=== PATIENT | female | born 1960 | race Caucasian/White ===

== ENCOUNTER 2016-04-16 15:28 | Inpatient (IN) | payer OTHER ==
--- NOTE | ~2016-04-16 | DS ---
Unit #: [id number] #: [id number] Patient: LYDIA FOSTER [id number] [facility]. [place], [place] [address] [id number] I MR#: [id number] NAME: LYDIA FOSTER ROOM: [facility] Age: 55 Sex: F Admission Date: 04/16/2016 : 1960 Discharge Date: 04/25/2016 Attending Physician: Ammy Jama M.D. Primary Care Physician: Rivas Galvez M.D. DISCHARGE SUMMARY CONSULTATIONS Dr. Zarco with cardiology. CONDITION ON DISCHARGE Stable. FINAL DIAGNOSES 1. Acute hypoxia/acute hypoxic respiratory failure. Patient wearing oxygen; however, not sure that she will qualify for home oxygen. Will eventually need a 6-minute walk test prior to discharge from rehab. Is currently on room air with oxygen saturations of 98% at rest. 2. Acute exacerbation of chronic obstructive pulmonary disease. Bronchospasm has improved and currently on oral steroids and will continue to do a taper of these once she gets to rehab. The patient is not on any antibiotics at this time. 3. Nonischemic cardiomyopathy. Two-dimensional echocardiogram revealed an ejection fraction of 30% to 35%. Medications per cardiology. 4. Chest pain. The patient did have a heart catheterization that showed mostly normal coronaries. This was done on April 17. 5. Hyponatremia. Sodium this morning was 129. Yesterday it was 135 and was 131 on the . We will follow up with [facility] on Thursday. 6. Hypertension. Blood pressure medications per cardiology. PROCEDURES The patient underwent a heart cath on April [address] Novak that revealed angiographically normal coronary arteries with medical management. DIAGNOSTIC STUDIES CARDIOVASCULAR: A two-D echo done on April 17 revealed an EF of 30% to 35%. Medications and management per cardiology. IMAGING: Chest x-ray done this morning revealed no active or acute disease. However, she does have some mild scarring versus atelectasis in the left base. LABORATORY: Sodium was 129, potassium 4.4, BUN 18, creatinine 0.6, blood sugar 87. HOSPITAL COURSE The patient was admitted on April 16 with chest pain and other signs and symptoms that resembled the flu. There was no leukocytosis noted at that time. Procalcitonin was 0.33, and she had not had any fevers since admission. D-dimer was not elevated. Respiratory pathogen panel was collected and was negative for flu A and flu B. The patient underwent a Unit #: [id number] #: [id number] Patient: LYDIA FOSTER cath with cardiology on the 2nd with normal coronaries noted and medical management recommended. The patient was started on IV steroids, which have been tapered and are now p.o. Chest x-rays have not revealed any acute infiltrate since admission including the one on admission and the one from today, April 25, date of discharge. All blood pressure medications and diuretics have been adjusted per cardiology. Physical therapy and occupational therapy have been working with this patient, and she is now ready for discharge to rehab on April 25. She [facility] at the [facility] PHYSICAL EXAMINATION (on date of discharge) VITAL SIGNS: Temp of 97.7, heart rate of 102, respirations 18, blood pressure 134/76, oxygen saturation 98%. GENERAL: The patient is in no acute distress, sitting up in the bed. She was on the phone when I entered the room. NEUROLOGIC: She is awake, alert and oriented x3. PULMONARY: She does have some expiratory rhonchi that clears some with a cough, and she also some expiratory wheezes bilaterally. However, respirations are not labored, and she is currently on room air. CARDIOVASCULAR: Regular rate and rhythm. ABDOMEN: Soft, round, nontender with positive bowel sounds. EXTREMITIES: Without edema. SKIN: Without lesions or rashes. DISCHARGE MEDICATIONS 1. The patient will continue her albuterol Mini-Neb. 2. Her home Symbicort has been changed to Pulmicort nebs for the time being. This can be switched back to Symbicort upon her discharge. 3. She has been started on prednisone, which will be tapered with the tapering dose written out on the discharge instructions. The patient is currently receiving 30 mg p.o. b.i.d. Starting tomorrow would like to start prednisone 40 mg p.o. daily x3 days, then 30 mg p.o. daily x3 days, then 20 mg p.o. daily x3 days, then 10 mg p.o. daily x3 days to complete the taper. 4. The patient has also been started on Entresto by cardiology. 5. Magnesium oxide 400 mg tablets b.i.d. 6. Would like to continue her Lovenox for now; however, she will not need to go home on this. 7. The patient is to continue her home Remeron. 8. Continue her home Seroquel. 9. She has been started on Norvasc per cardiology. 10. Lasix per cardiology. 11. Will continue her home Synthroid. 12. Would like to continue 3% nebs for the time being; however, she does not need to continue these upon discharge from rehab. 13. I have discontinued her Percocet and will start on just Tylenol 650 p.o. q.4 p.r.n., not to exceed 4 grams of Tylenol daily. I have discussed this with her, and she is okay with this change. DISCHARGE INSTRUCTIONS The patient is to follow up with Dr. Zarco in 2 weeks, and we would like for her to follow up in our office in the next 2-4 weeks. The patient will be discharged to rehab at this time. Dictated by... Lenore Jansen APRN for Ammy Jama M.D. Unit #: [id number] #: [id number] Patient: LYDIA FOSTER AT/db TD: 04/25/2016 12:56 JOB #: [id number] DISCHARGE SUMMARY X Lenore Jansen X DISCHARGE SUMMARY
--- NOTE | ~2016-04-16 | CR63 ---
[facility] A Service of [facility] & [facility] RADIOLOGY TEXT RESULTS PATIENT: LYDIA FOSTER LOCATION: [facility] 311-01 : 58 UNIT #: [id number] AGE: [address]: Ángel Jama MD SEX: F ORDER DR: [id number] [facility] [address] [place], [place] [address] [id number] I MR#: [id number] Acc #: [id number] NAME: LYDIA FOSTER : 1960 SEX: F STUDY DATE/TIME: 04/21/2016 17:26 UNIT: [address] ROOM: [facility] STUDY DESCRIPTION: CR Chest 2 View Attending Physician: Ammy Jama M.D. Ordering Physician: Ammy Jama M.D. Primary Care Physician: Rivas Galvez M.D. MEDICAL IMAGING REPORT This report is preliminary unless electronic signature is present EXAM Chest 2 views 04/21/2016 HISTORY Follow up chest pain. COPD, flu, fever, body aches 4 days duration. Nodules on lungs. FINDINGS PA and lateral radiographs of chest are presented. Comparison 04/20/2016. The bony structures are unremarkable. The heart and mediastinum are normal in size and contour. The lungs are hyperinflated as on prior study consistent with underlying COPD. Linear scarring left lung base stable. There is no indication of acute pulmonary disease, pleural effusion or pneumothorax. No suspicious nodule seen on this examination. Dictated by... Dagoberto Garces M.D. THIS IS AN ELECTRONICALLY VERIFIED REPORT Dagoberto Garces M.D. at 04/22/2016 5:42 PM LEEROY/lowell TD: 04/22/2016 08:25 JOB #: [id number] MEDICAL IMAGING REPORT COPY
--- NOTE | ~2016-04-16 | EKG ---
PATIENT: LYDIA FOSTER UNIT #: [id number] Ventricular Rate: 88 BPM Atrial Rate: 88 BPM P-R Interval: 132 ms QRS Duration: 106 ms Q-T Interval: 440 ms QTC Calculation(Bezet): 532 ms P [place]: 76 degrees Calculated R [place]: 66 degrees Calculated T [place]: -50 degrees Diagnosis Line: Normal sinus rhythm Diagnosis Line: Incomplete left bundle branch block Diagnosis Line: Prolonged QT Diagnosis Line: Abnormal ECG Diagnosis Line: When compared with ECG of 17-APR-2016 06:01, Diagnosis Line: (unconfirmed) Diagnosis Line: T wave inversion no longer evident in Lateral Diagnosis Line: leads Diagnosis Line: Confirmed by CHRISTELLE MAX MD ([id number]) on 04/19/2016 Diagnosis Line: 5:51:21 PM INTERPRETING MD: WINTER MORENO
--- NOTE | ~2016-04-16 | A ---
[facility] Nutrition Therapy DATE: 04/17/16 Patient: LYDIA FOSTER Physician: MACHELLE Address: [address] Room/Bed: [address] [place] [address], Zip: [place] [address] Admit Date: 04/16/16 Date of : 58 Height: 5 2 Weight: 93 42.2 NUTRITIONAL ASSESSMENT: REASON: LOW BMI 55 YO FEMALE ADMITTED FOR CHEST PAIN, POSITIVE FOR FLU PMH: COPD, HTN, dyslipidemia, CAD Anthropometrics: Ht: 62" Wt: 42.2 kg BMI: 17 IBW: 50 kg, 84% IBW Labs: K+ 3.0 BUN 6 Creat 0.5 Ca++ 7.1 Mg++ 1.1 Meds: Zofran, MgSO4, KCl, pepcid, spironolactone, remeron, synthroid (PO) I/O & Bowel function: 1115/4, last BM 3 Skin Integrity: Dry skin all over Edema: none noted Estimated Nutrition Needs: Increased due to PMH, low body weight Diet: Regular Assessment: Chart reviewed, events noted. Pt admitted for chest pain, also positive for the flu. RD spoke with the pt at bedside, as this RD saw the pt during a previous admission June 2015. Pt confirmed that she has actually gained ~16# since last visit. Pt reports having a fair appetite at this time, and consumed 100% of lunch, and did not feel like drinking her Ensure supplement. RD encouraged the pt to consume supplements as tolerated, and smaller more frequent meals as needed. Pt does prefer smaller, more frequent meals. RD will order. Dx: Increased protein-energy needs RT PMH, COPD, Dx AEB BMI 17, 84% IBW. Intervention: 1. Regular diet 2. 6 small meals 3. Ensure TID Monitoring, Evaluation and Goals: 1. Oral intake; tolerate >50-75% meals 2. Labs; WNL 3. Weight; promote weight gain, prevent weight loss [facility] Nutrition Therapy DATE: 04/17/16 Patient: LYDIA FOSTER Physician: MACHELLE Address: [address] Room/Bed: [address] [place] [address], Zip: [place] [address] Admit Date: 04/16/16 Date of : 58 Height: 5 2 Weight: 93 42.2 Recommendations: 1. Add 6 small meals to current diet order to promote adequate nutrient intake and weight gain. 2. Ensure TID (chocolate) with meals. Pt is at mild-moderate nutritional risk. RD will follow hospital course per protocol. Respectfully, MAX BRUNER RD, LD [employer] [facility] cc: client file
--- NOTE | ~2016-04-16 | HP ---
Unit #: [id number] #: [id number] Patient: LYDIA FOSTER [id number] [facility]. [place], [place] [address] [id number] I MR#: [id number] NAME: LYDIA FOSTER ROOM: 311 Age: 55 Sex: F Admission Date: 04/16/2016 : 1960 Attending Physician: Ammy Jama M.D. Primary Care Physician: Rivas Galvez M.D. HISTORY AND PHYSICAL HISTORY OF PRESENT ILLNESS This is a 55-year-old female seen in our office in March 2016 for shortness of breath and was given antibiotics and a steroid. She completed both of these last week and was feeling better but then started feeling worse again on of last week. She complains of dyspnea on exertion with minimal activity, off and on fevers and chills for the last few days, chest pain, increased weakness and fatigue, a cough that is somewhat productive with "foul-tasting sputum," decreased appetite, and just generalized aches all over. She says that she called our office and spoke with someone who told her that she needed to go to her primary care physician and be swabbed for the flu, but it was too late to get in at that time. Thursday she began to feel even worse and eventually presented to the ER with the main complaint of chest pain. She denies that this chest pain is caused by coughing or exacerbated by coughing. However, on palpation she is grimacing and reporting worsening pain. She was evaluated by Cardiology and had a cath today which was clean, and she does report being exposed to her 6-year-old grandson who has been sick. The patient has a history of COPD. She is not on home oxygen but does use DuoNebs, Symbicort, and Spiriva, and she says that she quit smoking about a year ago. PAST MEDICAL HISTORY 1. Chronic obstructive pulmonary disease. 2. Gastroesophageal reflux disease. 3. Depression. 4. Hypothyroid. SOCIAL HISTORY Patient is a former smoker. She quit, it will be one year ago in June. ALLERGIES AMPICILLIN. HOME MEDICATIONS 1. Remeron 15 mg p.o. at bedtime. 2. Seroquel 25 mg p.o. at bedtime. 3. Zestril 10 mg p.o. daily. 4. Prilosec 40 mg p.o. daily. 5. Prozac 40 mg p.o. 3 times daily. 6. Synthroid 88 mcg p.o. daily before breakfast. 7. Spiriva 1 inhalation daily. 8. Symbicort 2 puffs inhaled daily. 9. Proventil p.r.n. Unit #: [id number] #: [id number] Patient: LYDIA FOSTER REVIEW OF SYSTEMS Negative except for what was mentioned in the History of Present Illness. PHYSICAL EXAMINATION VITAL SIGNS: Temperature of 97.6, heart rate 83, respirations 19, blood pressure 150/96, and oxygen saturation 95% on room air. GENERAL: Patient is in no acute distress sitting up in the bed status post cardiac catheterization. HEENT: No JVD and is without adenopathy. LUNGS: Respirations are not labored. However, she does have mild expiratory wheeze bilaterally. CARDIAC: Regular rate and rhythm. ABDOMEN: Soft, round, and nontender, with positive bowel sounds. EXTREMITIES: Without edema. SKIN: Without lesions or rashes. NEUROLOGIC: She is awake, alert, and oriented x3. DIAGNOSTIC STUDIES LABORATORY: White blood cell count was 7.4, hemoglobin 13.6, and platelets 265,000. Sodium 136, potassium was 3 this morning, BUN 6, creatinine 0.5, and magnesium 1.1. Troponin 0.04. INR 1.1 and PT 11.1. BNP 68. Procalcitonin 0.33. D-dimer was 335. IMAGING: Chest x-ray with no acute infiltrate. ASSESSMENT AND PLAN 1. Acute dyspnea. Chest x-ray with no acute disease. Procalcitonin was 0.33. No leukocytosis noted. No fevers since admission. However, she reported subjective fevers at home. Oxygenation is okay with saturations of 95% on room air. She did have an elevated D-dimer, but since she had a cardiac catheterization today, we will hold off on doing a PE protocol. However, I would like to check a respiratory viral panel, and due to the patient's signs and symptoms, I will go ahead and start Tamiflu which we can stop if the viral panel comes back negative. 2. Chest pain. The patient has been evaluated by Cardiology. She is status post catheterization today with no acute findings. She had been on heparin and Integrilin drips that have since been stopped. Ejection fraction was 50% to 55%. Chest pain was reproducible with palpation. 3. Chronic obstructive pulmonary disease with exacerbation and noted bronchospasm. Will give IV steroids x2 and continue her home nebulizers and inhalers. 4. Prophylaxis. Would like to start prophylactic Lovenox starting tomorrow morning. 5. Hypomagnesemia. Magnesium was replaced per Cardiology. 6. Hypokalemia which was replaced per Cardiology. 1. Dictated by Lenore Jansen APRN for Ammy Jama M.D. AT/am TD: 04/17/2016 15:13 JOB #: [id number] Unit #: [id number] #: [id number] Patient: LYDIA FOSTER HISTORY AND PHYSICAL X Lenore Jansen X HISTORY AND PHYSICAL
--- NOTE | ~2016-04-16 | CR72 ---
[facility] A Service of [facility] & [facility] RADIOLOGY TEXT RESULTS PATIENT: LYDIA FOSTER LOCATION: [facility] 311- : 58 UNIT #: [id number] AGE: [address]: Ángel Jama MD SEX: F ORDER DR: [id number] [facility] [address] [facility]. [place], [place] [address] [id number] I MR#: [id number] Acc #: [id number] NAME: LYDIA FOSTER : 1960 SEX: F STUDY DATE/TIME: 04/25/2016 05:03 UNIT: [address] ROOM: [facility] STUDY DESCRIPTION: CR Chest Single View Portable Attending Physician: Ammy Jama M.D. Ordering Physician: Ammy Jama M.D. Primary Care Physician: Rivas Galvez M.D. MEDICAL IMAGING REPORT This report is preliminary unless electronic signature is present EXAM Portable chest 04/25/2016 at 0503 INDICATION Chest pain, shortness of air. FINDINGS AP portable chest compared with 04/21/2016. Cardiac and mediastinal contours are normal. The lungs are emphysematous except for some mild scarring or atelectasis at the left base. No pneumothorax. IMPRESSION Emphysema with mild left base chronic scarring or atelectasis. Otherwise, no active disease. Dictated by... Ronnell Hutchison Jr., M.D. THIS IS AN ELECTRONICALLY VERIFIED REPORT Ronnell Hutchison Jr., M.D. at 04/25/2016 12:41 PM ZHOU/khai TD: 04/25/2016 10:18 JOB #: [id number] MEDICAL IMAGING REPORT COPY
--- NOTE | ~2016-04-16 | CO ---
Unit #: [id number] #: [id number] Patient: LYDIA STONER [id number] [facility] [address] [facility]. [place], [place] [address] [id number] I MR#: [id number] NAME: LYDIA STONER ROOM: 311 Age: 55 Sex: F Admission Date: 04/16/2016 : 1960 Attending Physician: Ammy Jama M.D. Primary Care Physician: Rivas Galvez M.D. CONSULTATION REPORT Consultation requested by Dr. Galvez. REASON FOR CONSULTATION REQUEST Chest pain. HISTORY OF PRESENT ILLNESS Mrs. Stoner is a pleasant 55-year-old female looking older than her stated age. She has a history of COPD, tobacco abuse with 35 years until 06/25/15, hypertension, dyslipidemia, severe, and a strong family history of coronary disease. She has not had a cardiac event. She started noticing chest pain today "all the time." It did not radiate, was associated with diaphoresis and shortness of breath, but was mainly present in the center of her chest. She had been ill with the flu for about five days, and had noted recent progressive dyspnea on exertion so that she could just barely walk across the room. She has had on and off chest pain during the week, but did no have any anginal type symptoms. The current pain is not aggravated by exertion or relieved by rest. Upon presentation to the emergency room at [facility], the ECG showed right atrial enlargement, and very low anterior forces, likely related to lead placement in relation to the heart, and relation to COPD and likely posterior and inferior displacement. There are no acute ST changes. There is substantial baseline artifact, however, which obscures the ST segments. Initial labs showed fasting glucose 105, creatinine 0.8, potassium 2.3. Point of care troponin less than 0.05. Platelet count was 265,000, hemoglobin 13.6, white blood count 7.4. REVIEW OF SYSTEMS As per history of present illness. Otherwise, as stated below. GENERAL: No recent fever or chills. No recent weight change. ENDOCRINE: Negative for thyroid disease. HEENT: No auditory or visual disturbances. GASTROINTESTINAL: No melena, no hematochezia. RESPIRATORY: Progressive dyspnea on exertion, currently class 3. CARDIOVASCULAR: Vide supra. GENITOURINARY: No dysuria. No back pain suggestive of nephrolithiasis. NEUROLOGIC: No seizure disorder, recent CVA, or TIA. PSYCHOLOGICAL: No depression. PAST MEDICAL HISTORY 1. COPD. 2. Tobacco abuse until 06/25/15. Unit #: [id number] #: [id number] Patient: LYDIA STONER 3. Hypertension. 4. Family history of coronary disease, strong. Father [place] age 45. 5. Dyslipidemia. 6. Denies diabetes. PAST SURGICAL HISTORY Denies. MEDICATIONS 1. Fluoxetine. 2. Remeron. 3. Xanax. 4. Lisinopril. 5. Omeprazole. 6. Synthroid. ALLERGIES Ampicillin, papaya. SOCIAL HISTORY Lives at home. Stopped smoking 06/25/15. FAMILY HISTORY Positive for premature atherosclerotic disease, father 45-year-old with [place]. PHYSICAL EXAMINATION GENERAL: Pleasant, alert, in no acute distress. Frail, cachectic. VITAL SIGNS: Heart rate is 93 and regular, current respiratory rate is 15, blood pressure 158/96, height 5 foot 2 inches, weight 89 pounds, BMI 16. SKIN: Warm and dry. No xanthelasma. MUSCULOSKELETAL: No missing digits. Moves easily for evaluation. NEUROLOGICAL: Appropriate mood and affect. Alert and oriented x3. HEENT: Pupils equal, round and reactive. No oral cyanosis. No icterus. NECK: Carotids clear to auscultation with no carotid bruits. Normal carotid upstroke bilaterally. Thyroid is normal in size and texture without masses or tenderness. CHEST: Clear to auscultation with no rales or wheezes. Good effort. CARDIAC: Normal point of maximum impulse. Normal S1 and S2. No S3, S4 or rub. ABDOMEN: No hepatosplenomegaly, masses or tenderness. Normal bowel sounds. No abdominal bruits heard. EXTREMITIES: No clubbing, cyanosis or edema. Excellent posterior tibial and dorsalis pedis pulses. DIAGNOSTIC STUDIES As above regarding the ECG and labs. IMPRESSION 1. Chest pain, atypical for cardiac disease but very high risk for cardiac disease: The one thing that concerns me the most is a recent significant dyspnea on exertion just across the room. She does not currently have anything suggestive of hear failure, thus, I think this may be an anginal equivalent. We will get a stress test with a very low threshold for cardiac catheterization. We will follow Unit #: [id number] #: [id number] Patient: LYDIA STONER troponins, and ECGs. 2. Chronic obstructive pulmonary disease, significant and severe. 3. Tobacco abuse until 06/25/15 for 35 years. 4. Hypertension with likely hyperaldosteronism: Potassium is very low, significant hypokalemia. 5. Family history of coronary disease as noted. 6. Dyslipidemia. OVERALL IMPRESSION High suspicion for cardiac disease. We will check a stress and an echo, as well as lipids. She was told that the lipids were very high, but told not to worry about them. We will get spironolactone started. Likely has hyperaldosteronism. Will check potassium and magnesium in the morning. Thanks very much for this challenging consultation. Dictated by... Alonso Zarco M.D. RUSSEL/allison TD: 04/17/2016 12:34 JOB #: [id number] CONSULTATION REPORT X Alonso Zarco MD X CONSULTATION REPORT
--- NOTE | ~2016-04-16 | CR63 ---
[facility] A Service of [facility] & [facility] RADIOLOGY TEXT RESULTS PATIENT: LYDIA FOSTER LOCATION: [facility] 311- : 58 UNIT #: [id number] AGE: [address]: Ángel Jama MD SEX: F ORDER DR: [id number] [facility] [address] [facility]. [place], [place] [address] [id number] I MR#: [id number] Acc #: [id number] NAME: LYDIA FOSTER : 1960 SEX: F STUDY DATE/TIME: 04/20/2016 8:10 UNIT: [address] ROOM: [facility] STUDY DESCRIPTION: CR Chest 2 View Attending Physician: Ammy Jama M.D. Ordering Physician: Ammy Jama M.D. Primary Care Physician: Rivas Galvez M.D. MEDICAL IMAGING REPORT This report is preliminary unless electronic signature is present EXAM Chest x-ray 2 views HISTORY COPD, chest pain, tightness, flu symptoms, short of air, congestion, cough and fever for a week. History of COPD. COMMENT 2 views of the chest reviewed. Comparison study is from 04/16/2016. The lungs are hyperinflated and there is distortion of parenchymal architecture consistent with chronic obstructive lung disease history. The cardiac silhouette size is top normal. There is no acute-appearing parenchymal infiltrate, acute congestive failure, pneumothorax or pleural effusion. Chronic asymmetry right upper lobe at the level of the first rib anteriorly is probably due to overlying shadows rather than parenchymal disease. There could be some underlying parenchymal scarring but the appearance has not changed from 07/03/2015 or 08/04/2012. IMPRESSION 1. Evidence of chronic obstructive lung disease. 2. Otherwise, no active disease. Dictated by... Adina Baca M.D. THIS IS AN ELECTRONICALLY VERIFIED REPORT Adina Baca M.D. at 04/21/2016 11:38 AM SAC/psc TD: 04/20/2016 19:13 JOB #: [id number] [facility] A Service of [facility] & [facility] RADIOLOGY TEXT RESULTS PATIENT: LYDIA FOSTER LOCATION: [facility] 311-01 : [birth year] UNIT #: [id number] AGE: [address]: Ángel Jama MD SEX: F ORDER DR: MEDICAL IMAGING REPORT COPY
--- NOTE | ~2016-04-16 | EKG ---
PATIENT: LYDIA FOSTER UNIT #: [id number] Ventricular Rate: 91 BPM Atrial Rate: 91 BPM P-R Interval: 140 ms QRS Duration: 104 ms Q-T Interval: 434 ms QTC Calculation(Bezet): 533 ms P [place]: 79 degrees Calculated R [place]: 70 degrees Calculated T [place]: -74 degrees Diagnosis Line: Normal sinus rhythm Diagnosis Line: Septal infarct (cited on or before 25-JUN-2015) Diagnosis Line: ST and T wave abnormality, consider inferior Diagnosis Line: ischemia Diagnosis Line: Prolonged QT Diagnosis Line: Abnormal ECG Diagnosis Line: When compared with ECG of 16-APR-2016 14:30, Diagnosis Line: (unconfirmed) Diagnosis Line: No significant change was found Diagnosis Line: Confirmed by URMILA HE MD ([id number]) on 04/17/2016 Diagnosis Line: 6:25:00 PM INTERPRETING MD: NERI MORENO
--- NOTE | ~2016-04-16 | EKG ---
PATIENT: LYDIA FOSTER UNIT #: [id number] Ventricular Rate: 96 BPM Atrial Rate: 96 BPM P-R Interval: 126 ms QRS Duration: 108 ms Q-T Interval: 412 ms QTC Calculation(Bezet): 520 ms P [place]: 73 degrees Calculated R [place]: 72 degrees Calculated T [place]: -95 degrees Diagnosis Line: Normal sinus rhythm Diagnosis Line: Biatrial enlargement Diagnosis Line: Anteroseptal infarct (cited on or before Diagnosis Line: 25-JUN-2015) Diagnosis Line: ST and T wave abnormality, consider inferior Diagnosis Line: ischemia Diagnosis Line: Prolonged QT Non-specific intra-ventricular Diagnosis Line: conduction block Diagnosis Line: Abnormal ECG Diagnosis Line: When compared with ECG of 25-JUN-2015 19:44, Diagnosis Line: Significant changes have occurred Diagnosis Line: Confirmed by URMILA HE MD ([id number]) on 04/17/2016 Diagnosis Line: 6:22:20 PM INTERPRETING MD: NERI OMRENO
--- NOTE | ~2016-04-16 | CR72 ---
[facility] A Service of [facility] & [facility] RADIOLOGY TEXT RESULTS PATIENT: LYDIA FOSTER LOCATION: [facility] [id number] : 58 UNIT #: [id number] AGE: [address]: Ángel Jama MD SEX: F ORDER DR: [id number] [facility] [address] [place], [place] [address] [id number] I MR#: [id number] Acc #: [id number] NAME: LYDIA FOSTER : 1960 SEX: F STUDY DATE/TIME: 04/16/2016 15:34 UNIT: CEDOF ROOM: [id number] STUDY DESCRIPTION: CR Chest Single View Portable Attending Physician: Ammy Jama M.D. Ordering Physician: Meir Moscoso M.D. Primary Care Physician: Rivas Galvez M.D. MEDICAL IMAGING REPORT This report is preliminary unless electronic signature is present EXAM Portable chest 04/16/2016 HISTORY Chest pain COMPARISON STUDIES 12/31/2015 A portable view of the chest was obtained. FINDINGS The heart size and vascularity are normal. The lungs are clear. The bones are unremarkable. IMPRESSION No active disease. Dictated by... Mark Patel M.D. THIS IS AN ELECTRONICALLY VERIFIED REPORT Mark Patel M.D. at 04/17/2016 10:07 AM TR/sissy TD: 04/16/2016 18:30 JOB #: [id number] MEDICAL IMAGING REPORT COPY
[~2016-04-16 15:28] MED LIST: ALBUTEROL0.63 MG/3 IH; ALPRAZOLAM PO; CIPRO250 M1 PO; FLUOXETINE HCL20 M1 PO; FLUOXETINE HCL40 M1 PO; HYDROCODON-ACE1 EACH PO; IPRATROPIUM0.2 MG/ML NEB; LEVAQUIN PO; LEVOTHROID125 MCG PO; LISINOPRIL10 MG PO; OMEPRAZOLE40 M1 PO; OMEPRAZOLE40 MG PO; PREDNISONE PO; PRILOSEC40 MG PO; REMERON PO; REMERON15 MG PO; SEROQUEL PO; SYNTHROID88 MCG PO; ZESTRIL10 MG PO; ZOFRAN8 MG PO
[2016-04-16 15:31] LABS: POC - CKMB 2.3 ng/mL (0.0-7.9); POC - TROPONIN <0.05 ng/mL (<=0.05)
[2016-04-16 15:37] LABS: BASOPHIL% 0.4 % (0-2.5); EOSINOPHIL% 0.3 % (0.0-7.0); HEMOGLOBIN 13.6 gm/dL (12.0-16.0); LYMPHOCYTE# 1.7 X10e3 (1.0-3.5); LYMPHOCYTE% 23.2 % (17.0-45.0); MEAN CELL VOLUME 93.8 FL (83-96); MEAN CORPUSCULAR HEMOGLOBIN 31.8 PG (28-34); MEAN CORPUSCULAR HGB CONC 33.9 g/dL (30-36); MEAN PLATELET VOLUME 8.8 FL (6.5-11.5); MONOCYTE# 1.1 X10e3 (0-1.0); MONOCYTE% 15.5 % (3.0-12.0); NEUTROPHIL# 4.5 X10e3 (1.5-7.1); NEUTROPHIL% 60.6 % (40-75); PLATELET COUNT 265 X10e3 (140-420); RED BLOOD COUNT 4.27 X10e (3.90-5.30); RED CELL DISTRIBUTION WIDTH 13.8 % (11.0-15.5); WHITE BLOOD COUNT 7.4 X10e3 (4.0-10.5)
[2016-04-16 15:39] LABS: DIFF IND NO
[2016-04-16 15:55] LABS: PARTIAL THROMBOPLASTIN TIME 24.3 SECONDS (23.5-31.3); PROTHROMBIN TIME (PATIENT) 10.8 SECONDS (9.6-11.5)
[2016-04-16 16:01] LABS: ALBUMIN SERUM 3.7 g/dL (3.5-5.0); ALKALINE PHOSPHATASE 81 U/L (32-92); ALT (SGPT) 46 U/L (10-40); AST (SGOT) 55 U/L (10-42); BILIRUBIN, DIRECT 0.1 mg/dL (0.0-0.2); BILIRUBIN,INDIRECT 0.4 mg/dL (0.0-0.9); BILIRUBIN,TOTAL 0.5 mg/dL (0.2-2.0); BLOOD UREA NITROGEN 9 mg/dL (9-23); BUN/CREATININE RATIO 11.25; CALCIUM SERUM 8.3 mg/dL (8.4-10.2); CARBON DIOXIDE 34 mmol/L (22-31); CHLORIDE 94 mmol/L (100-111); CREATININE SERUM 0.8 mg/dL (0.6-1.4); GLOM FILT RATE Estimated ABOVE60 mL/min (>60); GLUCOSE FASTING 105 mg/dL (70-110); PROTEIN TOTAL SERUM 7.4 g/dL (6.0-8.3); SODIUM 135 mmol/L (135-145)
[2016-04-16 16:04] LABS: POTASSIUM 2.3 mmol/L (3.5-5.1)
[2016-04-16 17:12] LABS: POC - CKMB <1.0 ng/mL (0.0-7.9); POC - TROPONIN <0.05 ng/mL (<=0.05)
[2016-04-16] MEDS ORDERED: REMERON15 MG PO (22:27)
[2016-04-16] MEDS ORDERED: SEROQUEL25 MG PO (22:27)
[2016-04-16] MEDS ORDERED: LISINOPRIL PO (22:29)
[2016-04-16] MEDS ORDERED: PROZAC PO (22:30)
[2016-04-16] MEDS ORDERED: PRILOSEC PO (22:30)
[2016-04-16] MEDS ORDERED: SYNTHROID88 MCG PO (22:32)
[2016-04-16] MEDS ORDERED: SPIRIVA18 MCG INH (23:12)
[2016-04-16] MEDS ORDERED: SYMBICORT80 INH (23:13)
[2016-04-16] MEDS ORDERED: ALBUTEROL 0.5ML INH (23:14)
[2016-04-17 08:09] LABS: BLOOD UREA NITROGEN 6 mg/dL (9-23); CALCIUM SERUM 7.1 mg/dL (8.4-10.2); CARBON DIOXIDE 26 mmol/L (22-31); CHLORIDE 105 mmol/L (100-111); CREATININE SERUM 0.5 mg/dL (0.6-1.4); GLOM FILT RATE Estimated ABOVE60 mL/min (>60); GLUCOSE FASTING 82 mg/dL (70-110); MAGNESIUM 1.1 mg/dL (1.6-3.0); SODIUM 136 mmol/L (135-145)
[2016-04-17 08:17] LABS: CK TOTAL 57 IU/L (26-140)
[2016-04-17 08:38] LABS: CHOLESTEROL 129 mg/dL (0-200); HDL CHOLESTEROL 46 mg/dL (35-95); LDL CHOLESTEROL 65 mg/dL (-130); LDL/HDL RATIO 1 RATIO (0-4); TRIGLYCERIDES 91 mg/dL (10-160)
[2016-04-17 09:19] LABS: INR 1.1; PARTIAL THROMBOPLASTIN TIME 41.3 SECONDS (23.5-31.3); PROTHROMBIN TIME (PATIENT) 11.1 SECONDS (9.6-11.5)
[2016-04-18 05:07] LABS: HEMATOCRIT 31.9 % (35.0-45.0); MEAN CELL VOLUME 93.3 FL (83-96); MEAN CORPUSCULAR HEMOGLOBIN 32.1 PG (28-34); MEAN CORPUSCULAR HGB CONC 34.4 g/dL (30-36); MEAN PLATELET VOLUME 8.3 FL (6.5-11.5); RED BLOOD COUNT 3.42 X10e (3.90-5.30); RED CELL DISTRIBUTION WIDTH 13.7 % (11.0-15.5); WHITE BLOOD COUNT 6.5 X10e3 (4.0-10.5)
[2016-04-18 06:15] LABS: BLOOD UREA NITROGEN 7 mg/dL (9-23); BUN/CREATININE RATIO 11.66; CALCIUM SERUM 8.3 mg/dL (8.4-10.2); CARBON DIOXIDE 25 mmol/L (22-31); CHLORIDE 100 mmol/L (100-111); CREATININE SERUM 0.6 mg/dL (0.6-1.4); GLOM FILT RATE Estimated ABOVE60 mL/min (>60); GLUCOSE FASTING 97 mg/dL (70-110); POTASSIUM 3.4 mmol/L (3.5-5.1); SODIUM 138 mmol/L (135-145)
[2016-04-19 06:22] LABS: HEMOGLOBIN 12.5 gm/dL (12.0-16.0); MEAN CELL VOLUME 94.3 FL (83-96); MEAN CORPUSCULAR HEMOGLOBIN 31.7 PG (28-34); MEAN CORPUSCULAR HGB CONC 33.7 g/dL (30-36); MEAN PLATELET VOLUME 8.5 FL (6.5-11.5); RED BLOOD COUNT 3.92 X10e (3.90-5.30); RED CELL DISTRIBUTION WIDTH 13.9 % (11.0-15.5); WHITE BLOOD COUNT 8.4 X10e3 (4.0-10.5)
[2016-04-19 07:09] LABS: BLOOD UREA NITROGEN 8 mg/dL (9-23); CALCIUM SERUM 9.4 mg/dL (8.4-10.2); CARBON DIOXIDE 24 mmol/L (22-31); CHLORIDE 98 mmol/L (100-111); CREATININE SERUM 0.5 mg/dL (0.6-1.4); GLOM FILT RATE Estimated ABOVE60 mL/min (>60); GLUCOSE FASTING 117 mg/dL (70-110); MAGNESIUM 1.9 mg/dL (1.6-3.0); POTASSIUM 4.3 mmol/L (3.5-5.1); SODIUM 132 mmol/L (135-145)
[2016-04-20 05:08] LABS: HEMATOCRIT 37.4 % (35.0-45.0); HEMOGLOBIN 12.5 gm/dL (12.0-16.0); MEAN CELL VOLUME 95.4 FL (83-96); MEAN CORPUSCULAR HEMOGLOBIN 31.8 PG (28-34); MEAN CORPUSCULAR HGB CONC 33.4 g/dL (30-36); MEAN PLATELET VOLUME 8.3 FL (6.5-11.5); RED BLOOD COUNT 3.92 X10e (3.90-5.30); RED CELL DISTRIBUTION WIDTH 14.3 % (11.0-15.5); WHITE BLOOD COUNT 9.9 X10e3 (4.0-10.5)
[2016-04-20 06:35] LABS: BLOOD UREA NITROGEN 16 mg/dL (9-23); CALCIUM SERUM 9.3 mg/dL (8.4-10.2); CARBON DIOXIDE 28 mmol/L (22-31); CHLORIDE 96 mmol/L (100-111); CREATININE SERUM 0.8 mg/dL (0.6-1.4); GLOM FILT RATE Estimated ABOVE60 mL/min (>60); GLUCOSE FASTING 113 mg/dL (70-110); MAGNESIUM 2.2 mg/dL (1.6-3.0); PHOSPHOROUS 3.9 mg/dL (2.5-4.6); SODIUM 131 mmol/L (135-145)
[2016-04-20 06:40] LABS: POTASSIUM 5.7 mmol/L (3.5-5.1)
[2016-04-21 06:55] LABS: BASOPHIL% 0.1 % (0-2.5); HEMATOCRIT 33.4 % (35.0-45.0); HEMOGLOBIN 11.2 gm/dL (12.0-16.0); LYMPHOCYTE# 0.8 X10e3 (1.0-3.5); LYMPHOCYTE% 9.1 % (17.0-45.0); MEAN CELL VOLUME 95.2 FL (83-96); MEAN CORPUSCULAR HGB CONC 33.6 g/dL (30-36); MEAN PLATELET VOLUME 7.6 FL (6.5-11.5); MONOCYTE# 0.5 X10e3 (0-1.0); MONOCYTE% 5.9 % (3.0-12.0); NEUTROPHIL# 7.1 X10e3 (1.5-7.1); NEUTROPHIL% 84.9 % (40-75); PLATELET COUNT 488 X10e3 (140-420); RED BLOOD COUNT 3.51 X10e (3.90-5.30); RED CELL DISTRIBUTION WIDTH 14.1 % (11.0-15.5); WHITE BLOOD COUNT 8.4 X10e3 (4.0-10.5)
[2016-04-21 07:13] LABS: DIFF IND NO
[2016-04-21 07:20] LABS: BLOOD UREA NITROGEN 16 mg/dL (9-23); BUN/CREATININE RATIO 22.85; CALCIUM SERUM 8.9 mg/dL (8.4-10.2); CARBON DIOXIDE 30 mmol/L (22-31); CHLORIDE 93 mmol/L (100-111); CREATININE SERUM 0.7 mg/dL (0.6-1.4); GLOM FILT RATE Estimated ABOVE60 mL/min (>60); GLUCOSE FASTING 135 mg/dL (70-110); POTASSIUM 4.4 mmol/L (3.5-5.1); SODIUM 131 mmol/L (135-145)
[2016-04-22 05:45] LABS: HEMATOCRIT 33.1 % (35.0-45.0); HEMOGLOBIN 11.4 gm/dL (12.0-16.0); MEAN CELL VOLUME 96.7 FL (83-96); MEAN CORPUSCULAR HEMOGLOBIN 33.2 PG (28-34); MEAN CORPUSCULAR HGB CONC 34.3 g/dL (30-36); MEAN PLATELET VOLUME 7.6 FL (6.5-11.5); RED BLOOD COUNT 3.42 X10e (3.90-5.30); RED CELL DISTRIBUTION WIDTH 14.4 % (11.0-15.5); WHITE BLOOD COUNT 10.5 X10e3 (4.0-10.5)
[2016-04-22 06:33] LABS: MAGNESIUM 1.9 mg/dL (1.6-3.0); POTASSIUM 4.4 mmol/L (3.5-5.1)
[2016-04-23 06:00] LABS: HEMATOCRIT 34.1 % (35.0-45.0); HEMOGLOBIN 11.5 gm/dL (12.0-16.0); MEAN CELL VOLUME 95.5 FL (83-96); MEAN CORPUSCULAR HEMOGLOBIN 32.1 PG (28-34); MEAN CORPUSCULAR HGB CONC 33.6 g/dL (30-36); MEAN PLATELET VOLUME 7.3 FL (6.5-11.5); RED BLOOD COUNT 3.57 X10e (3.90-5.30); RED CELL DISTRIBUTION WIDTH 14.6 % (11.0-15.5); WHITE BLOOD COUNT 9.8 X10e3 (4.0-10.5)
[2016-04-23 06:53] LABS: BLOOD UREA NITROGEN 19 mg/dL (9-23); BUN/CREATININE RATIO 27.14; CALCIUM SERUM 9.3 mg/dL (8.4-10.2); CARBON DIOXIDE 32 mmol/L (22-31); CHLORIDE 93 mmol/L (100-111); CREATININE SERUM 0.7 mg/dL (0.6-1.4); GLOM FILT RATE Estimated ABOVE60 mL/min (>60); GLUCOSE FASTING 108 mg/dL (70-110); SODIUM 135 mmol/L (135-145)
[2016-04-23 07:26] LABS: POTASSIUM 5.7 mmol/L (3.5-5.1)
[2016-04-25 06:57] LABS: BLOOD UREA NITROGEN 18 mg/dL (9-23); CALCIUM SERUM 9.2 mg/dL (8.4-10.2); CARBON DIOXIDE 28 mmol/L (22-31); CHLORIDE 92 mmol/L (100-111); CREATININE SERUM 0.6 mg/dL (0.6-1.4); GLOM FILT RATE Estimated ABOVE60 mL/min (>60); GLUCOSE FASTING 87 mg/dL (70-110); MAGNESIUM 2.2 mg/dL (1.6-3.0); POTASSIUM 4.4 mmol/L (3.5-5.1); SODIUM 129 mmol/L (135-145)
== END 2016-04-25 14:04 | DRG 286 ==
LOC: CED 15:28 → CEDOF 16:46 → C3A PCU 21:49
PROVIDERS: Emergency Medicine; Internal Medicine Pulmonary Disease; Registered Nurse
PROC: B24BZZZ Ultrasonography of Heart with Aorta (ICD-10-PCS; principal; 2016-04-17)
PROC: 4A023N7 Measurement of Cardiac Sampling and Pressure, Left Heart, Percutaneous Approach (ICD-10-PCS; 2016-04-17)
PROC: B211YZZ Fluoroscopy of Multiple Coronary Arteries using Other Contrast (ICD-10-PCS; 2016-04-17)
PROC: B215YZZ Fluoroscopy of Left Heart using Other Contrast (ICD-10-PCS; 2016-04-17)
DX: I42.9 Cardiomyopathy, unspecified (principal); J96.01 Acute respiratory failure with hypoxia; J44.1 Chronic obstructive pulmonary disease with (acute) exacerbation; E87.1 Hypo-osmolality and hyponatremia; E46 Unspecified protein-calorie malnutrition; Z68.1 Body mass index [BMI] 19.9 or less, adult; E83.42 Hypomagnesemia; R07.9 Chest pain, unspecified; I10 Essential (primary) hypertension; K21.9 Gastro-esophageal reflux disease without esophagitis; F32.9 Major depressive disorder, single episode, unspecified; E03.9 Hypothyroidism, unspecified; Z87.891 Personal history of nicotine dependence; E87.6 Hypokalemia
CPT/HCPCS: 36415; 71010; 71020; 80048; 80061; 80076; 82308; 82550; 82553; 83036; 83735; 83880; 84100; 84132; 84443; 84484; 85025; 85027; 85379; 85610; 85730; 87633; 93005; 93306; 94640; 94664; 94760; 96360; 97110; 97116; 97161; 97165; 97530; 97535; 99285; C1769; C1887; C1894; J0360; J1327; J1644; J1650; J2250; J2405; J2920; J2930; J3010; J3475

== ENCOUNTER → 2016-06-18 | Outpatient (CLI) | payer OTHER, MEDICARE ==
[~2016-06-18] MED LIST changes: +ALBUTEROL 0.5ML INH; +LISINOPRIL PO; +PRILOSEC PO; +PROZAC PO; +SEROQUEL25 MG PO; +SPIRIVA18 MCG INH; +SYMBICORT80 INH
--- NOTE | ~2016-06-18 | CT57 ---
[facility] A Service of [facility] RADIOLOGY TEXT RESULTS PATIENT: LYDIA FOSTER LOCATION: [facility] #: [id number] : 58 UNIT #: [id number] AGE: [address]: Ángel Jama MD SEX: F ORDER DR: [id number] [address] [id number] [place], [place] [address] [id number] O MR#: [id number] Acc #: [id number] NAME: LYDIA FOSTER : 1960 SEX: F STUDY DATE/TIME: 06/18/2016 9:27 UNIT: [facility] ROOM: STUDY DESCRIPTION: CT Chest Wo Cont Attending Physician: Ángel Jama Referring Physician: Ángel Jama Ordering Physician: Ángel Jama Primary Care Physician: Rivas Galvez M.D. MEDICAL IMAGING REPORT This report is preliminary unless electronic signature is present EXAM CT chest without contrast INDICATIONS Emphysema, COPD, acute bronchitis. Pulmonary nodule followup. Shortness of air for the past [address] of the chest COMPARISON 12/05/[address] exam was performed with one or more of the following radiation dose reduction techniques: automatic exposure control, adjustment of mA and/or kV according to patient size, and iterative reconstruction. FINDINGS No dense consolidation. There is persistent scarring in the right apex. Centrilobular emphysema. No suspicious nodule. No adenopathy. No acute findings included upper abdomen. No aggressive appearing bone lesion. IMPRESSION 1. No acute findings. 2. Emphysema. 3. No suspicious pulmonary nodule. 4. Scarring in the right apex. 5. Given the patient's significant background emphysema, the patient may be a candidate for low-dose lung cancer screening. Correlate with patient's risk factors. Dictated by... Dony Krishna M.D. [facility] A Service of [facility] & [facility] RADIOLOGY TEXT RESULTS PATIENT: LYDIA FOSTER [id number] : 58 UNIT #: [id number] AGE: [address]: Ángel Jama MD SEX: F ORDER DR: THIS IS AN ELECTRONICALLY VERIFIED REPORT Dony Krishna M.D. at 06/20/2016 7:06 AM Toña TD: 06/19/2016 08:25 JOB #: [id number] MEDICAL IMAGING REPORT Page 1 of 1 COPY
== END | disposition home or self-care (01) ==
LOC: CCAT 09:09
DX: J44.0 Chronic obstructive pulmonary disease with (acute) lower respiratory infection (principal); J20.9 Acute bronchitis, unspecified; J43.8 Other emphysema; R91.1 Solitary pulmonary nodule; J98.4 Other disorders of lung
CPT/HCPCS: 71250

== ENCOUNTER 2016-08-31 11:19 | Inpatient (IN) | payer MEDICARE, OTHER ==
[~2016-08-31] VITALS: Ht 157.5 cm; Wt 43.8 kg
--- NOTE | ~2016-08-31 | CR72 ---
[facility] A Service of [facility] & [facility] RADIOLOGY TEXT RESULTS PATIENT: LYDIA FOSTER LOCATION: [place] [address] : [birth year] UNIT #: [id number] AGE: [address]: Du Horvath MD SEX: F ORDER DR: [id number] [facility] [address] [place], [place] [address] [id number] I MR#: [id number] Acc #: [id number] NAME: LYDIA FOSTER : 1960 SEX: F STUDY DATE/TIME: 09/03/2016 15:58 UNIT: [facility] ROOM: [facility] STUDY DESCRIPTION: CR Chest Single View Portable Attending Physician: Du Horvath M.D. Ordering Physician: Du Horvath M.D. Primary Care Physician: Rivas Galvez M.D. MEDICAL IMAGING REPORT This report is preliminary unless electronic signature is present EXAM Portable chest HISTORY Shortness of air. Respiratory failure today. FINDINGS Mild hyperinflation of both lungs. No airspace consolidation or pleural effusion. Mild interstitial prominence in the mid- and lower lungs bilaterally, increased compared to 08/31/2016, suggesting mild interstitial edema or pneumonitis in the lung bases. No pleural effusions. IMPRESSION 1. New mild interstitial prominence in the lower lungs bilaterally compared to 08/31/2016. This could be secondary to interstitial edema or pneumonitis. No focal airspace infiltrates. 2. Stable hyperinflation of both lungs. Dictated by... Binh Levine M.D. THIS IS AN ELECTRONICALLY VERIFIED REPORT Binh Levine M.D. at 09/04/2016 11:01 PM DFL/pcl TD: 09/03/2016 23:31 JOB #: [id number] MEDICAL IMAGING REPORT Page 1 of 1 COPY
--- NOTE | ~2016-08-31 | DS ---
Unit #: [id number] #: [id number] Patient: LYDIA FOSTER [id number] [address] [place], [place] [address] [id number] I MR#: [id number] NAME: LYDIA FOSTER ROOM: 302 Age: 56 Sex: F Admission Date: 08/31/2016 : 1960 Discharge Date: 09/10/2016 Attending Physician: Du Horvath M.D. Primary Care Physician: Rivas Galvez M.D. DISCHARGE SUMMARY DIAGNOSES The diagnoses include: 1. Chronic obstructive pulmonary disease exacerbation. 2. Acute non-ST elevation myocardial infarction. 3. Hypertension. 4. Anxiety. 5. Yiifw-zv-nosbhfv respiratory failure. 6. Acute congestive heart failure with ejection fraction 30%. 7. Hypertension. 8. Hyperlipidemia. CONSULTANTS Dr. Zarco with cardiology. HISTORY OF PRESENT ILLNESS The patient is a 56-year-old lady who presents with history of worsening shortness of breath for two to three days. Patient is complaining of chest pain as well. The patient complains of nausea, vomiting and diarrhea as well for three to four days. The patient denies any sort of paroxysmal nocturnal dyspnea, orthopnea or leg edema. Patient found to be hyperkalemic. Troponin max 1.68. Patient has PFT consistent with moderate to severe obstruction and she had been in our office approximately one month earlier for acute bronchitis. HOSPITAL COURSE The patient has a history of normal coronaries. She had a bump in her troponin, at max 1.68. The obsxn-nm-fgobcof systolic and diastolic heart failure was worsened. Dr. Zarco consulted. Patient was placed on Entresto. She had supplemental oxygen, steroids. Slowly the chest pain improved and shortness of breath; however, a few days before discharge, patient had an exacerbation of her anxiety requiring two more days in the hospital. The steroids were slowly weaned down and patient was able to be sent off on oral steroids and oral antibiotics. DISCHARGE MEDICATIONS The patient's discharge meds include: 1. Quetiapine 25 mg q.h.s. 2. Phenergan 12.5 mg p.o. q.6 h. p.r.n. nausea p.o. 3. Tessalon perles 200 mg p.o. b.i.d. p.r.n. 4. Xanax 0.25 mg p.o. t.i.d. 5. Coreg 3.125 mg p.o. b.i.d. 6. Lasix 20 mg p.o. daily. 7. Aspirin 81 mg daily. 8. Hydrocodone and acetaminophen 7.5/325 one tablet p.o. q.6 h. p.r.n. Unit #: [id number] #: [id number] Patient: LYDIA FOSTER 9. Omeprazole 40 mg daily. 10. Levothyroxine 88 mcg p.o. before breakfast. 11. Prednisone 40 mg x1 day, 30 mg x2 days, 12 mg x2 days and 10 mg x2 days. 12. Albuterol sulfate neb one amp for respiratory distress q.4 h. 13. Symbicort two puffs inhaled daily. 14. Entresto 49/51 one tablet b.i.d. 15. Tiotropium one capsule inhaled daily. 16. Lovenox 30 mg subcu daily. 17. Fluoxetine 40 mg p.o. t.i.d. 18. Remeron 15 mg q.h.s. 19. Zofran 4 mg q.4 h. p.r.n. nausea. FOLLOWUP 1. The patient is to follow up with her loan representative in approximately three weeks. 2. She is to follow up with our office in approximately three weeks. Dictated by... Benigno Lopez/prosper TD: 09/10/2016 17:42 JOB #: [id number] DISCHARGE SUMMARY Page 1 of 1 X Ángel Jama MD X DISCHARGE SUMMARY
--- NOTE | ~2016-08-31 | FU ---
[facility] Nutrition Therapy DATE: 09/04/16 Patient: LYDIA FOSTER Physician: ANGELO Address: [address] Room/Bed: [address], Zip: [place] [address] Admit Date: 08/31/16 Date of : 58 Height: 5 2 Weight: 90 41 NUTRITION MONITORING/FOLLOW-UP: Reason: Nutrition follow-up and c/s re: 2gm Na+ diet education 56 y/o female admitted for SOA Anthropometrics: ht: 5'2" wt: 90# (41 kg) BMI 16 81% IBW -Admit weight: 88# Labs: Na+ 129, Cl- 91, Ca++ 8.0, Alb 3.3, Mg++ 1.5 Meds: xanax, rocephin, zofran, solu-medrol, protonix, lovenox, synthroid I&O's: 3867/3302. BM 09/02 Skin: bruising- scattered. [place]- BUE trace Estimated Nutrition Needs: Increased 2' low BMI Diet: 2gm Na+ Assessment: Chart reviewed, events noted. Pt seen for nutrition follow-up. Pt previously seen on the floor and has been transferred to ICU, on 2L nasal cannula. RD manufacturing intern visited pt at bedside. Pt reports feeling "a lot better" and has a very good appetite. She reports eating 100% of her breakfast this morning, although she did have some nausea afterwards. Pt still receiving ensure compact BID and drinking 100% of each. RD manufacturing intern also provided pt with written and verbal 2gm Na+ diet education. No questions at this time. RD will continue to follow. Dx: Underweight r/t current condition, nausea, poor appetite AEB pt reported intake and appetite, low BMI of 16, 81% IBW -ACTIVE Intervention: 1. 2gm Na+ 2. Ensure compact chocolate BID 3. Diet education Monitoring, Evaluation and Goals: 1. Intake; consume/tolerate >50% of all meals and supplements -MET/IN PROGRESS 2. Weight; prevent weight loss, promote weight gain -IN PROGRESS 3. GI; promote regular GI function -IN PROGRESS Recommendations: 1. Continue MD ordered 2gm Na+ diet + 6 small meals + ensure compact chocolate BID [facility] Nutrition Therapy DATE: 09/04/16 Patient: LYDIA Del Rosario CRISTIAN Physician: ANGELO Address: [address] [facility] Room/Bed: [address], Zip: [place] [address] Admit Date: 08/31/16 Date of : 58 Height: 5 2 Weight: 90 41 2. Encourage adequate PO intake RD will f/u per protocol as pt is at mild/moderate nutritional risk. Respectfully, MEMO PEREZ, Licensing And Registration Director Ramirez Szymanski MS, RD, LD Food and Nutritional Services [facility] cc: client file
--- NOTE | ~2016-08-31 | EKG ---
PATIENT: LYDIA FOSTER UNIT #: [id number] Ventricular Rate: 85 BPM Atrial Rate: 85 BPM P-R Interval: 128 ms QRS Duration: 104 ms Q-T Interval: 488 ms QTC Calculation(Bezet): 580 ms P [place]: 77 degrees Calculated R [place]: 63 degrees Calculated T [place]: -112 degrees Diagnosis Line: Normal sinus rhythm Diagnosis Line: Low voltage QRS Diagnosis Line: Septal infarct (cited on or before 31-AUG-2016) Diagnosis Line: ST and Marked T wave abnormality, consider inferior Diagnosis Line: ischemia Diagnosis Line: ST and Marked T wave abnormality, consider Diagnosis Line: anterolateral ischemia Diagnosis Line: Prolonged QT Diagnosis Line: Abnormal ECG Diagnosis Line: When compared with ECG of 01-SEP-2016 06:22, Diagnosis Line: No significant change was found Diagnosis Line: Confirmed by CHRISTELLE MAX MD ([id number]) on 09/02/2016 Diagnosis Line: 7:24:37 PM INTERPRETING MD: WINTER MORENO
--- NOTE | ~2016-08-31 | CR72 ---
[facility] A Service of [facility] RADIOLOGY TEXT RESULTS PATIENT: LYDIA FOSTER LOCATION: [place] [address] : 58 UNIT #: [id number] AGE: [address]: Du Horvath MD SEX: F ORDER DR: [id number] [facility] [address] [place], [place] [address] [id number] I MR#: [id number] Acc #: [id number] NAME: LYDIA FOSTER. : 1960 SEX: F STUDY DATE/TIME: 09/04/2016 5:29 [facility] STUDY DESCRIPTION: CR Chest Single View Portable Attending Physician: Du Horvath M.D. Ordering Physician: Ammy Jama M.D. Primary Care Physician: Rivas Galvez M.D. MEDICAL IMAGING REPORT This report is preliminary unless electronic signature is present EXAM Portable chest INDICATION Shortness of air. PROCEDURE Frontal view chest. COMPARISON 09/03/2016. FINDINGS Heart size is stable. No new dense consolidation, pleural fluid or pneumothorax. IMPRESSION Stable. Dictated by... Dony Krishna M.D. THIS IS AN ELECTRONICALLY VERIFIED REPORT Dony Krishna M.D. at 09/04/2016 9:53 PM QUENTIN/[place] TD: 09/04/2016 12:11 JOB #: [id number] MEDICAL IMAGING REPORT Page 1 of 1 COPY
--- NOTE | ~2016-08-31 | EKG ---
PATIENT: LYDIA FOSTER UNIT #: [id number] Ventricular Rate: 107 BPM Atrial Rate: 107 BPM P-R Interval: 124 ms QRS Duration: 112 ms Q-T Interval: 394 ms QTC Calculation(Bezet): 525 ms P [place]: 81 degrees Calculated R [place]: 98 degrees Calculated T [place]: 76 degrees Diagnosis Line: Sinus tachycardia Diagnosis Line: Right atrial enlargement Diagnosis Line: Rightward axis Diagnosis Line: Anterior infarct (cited on or before 31-AUG-2016) Diagnosis Line: T wave abnormality, consider inferolateral Diagnosis Line: ischemia Diagnosis Line: Prolonged QT Diagnosis Line: Abnormal ECG Diagnosis Line: When compared with ECG of 17-APR-2016 08:30, Diagnosis Line: Serial changes of evolving Anterior infarct Diagnosis Line: Present Diagnosis Line: Confirmed by CHANTAL GODOY MDTHE CHRIST HOSPITALJUSTIN ([id number]) on Diagnosis Line: 08/31/2016 5:44:16 PM INTERPRETING MD: WALT MORENO
--- NOTE | ~2016-08-31 | CR72 ---
[facility] A Service of [facility] & [facility] RADIOLOGY TEXT RESULTS PATIENT: LYDIA FOSTER LOCATION: [place] [address] : 58 UNIT #: [id number] AGE: [address]: Du Horvath MD SEX: F ORDER DR: [id number] [facility] [address] [place], [place] [address] [id number] I MR#: [id number] Acc #: [id number] NAME: LYDIA FOSTER. : 1960 SEX: F STUDY DATE/TIME: 09/05/2016 5:48 UNIT: [facility] ROOM: [facility] STUDY DESCRIPTION: CR Chest Single View Portable Attending Physician: Du Horvath M.D. Ordering Physician: Ammy Jama M.D. Primary Care Physician: Rivas Galvez M.D. MEDICAL IMAGING REPORT This report is preliminary unless electronic signature is present EXAM Single view chest INDICATION Shortness of air and respiratory failure. Generalized weakness. FINDINGS Single portable AP view of the chest compared to 09/04/2016. Heart and mediastinal contours are unchanged. There is background COPD. No focal airspace opacity. IMPRESSION Background COPD. No new findings. Dictated by... Yusuf Mckenna M.D. THIS IS AN ELECTRONICALLY VERIFIED REPORT Yusuf Mckenna M.D. at 09/05/2016 3:09 PM ARMIN/[place] TD: 09/05/2016 08:54 JOB #: [id number] MEDICAL IMAGING REPORT Page 1 of 1 COPY
--- NOTE | ~2016-08-31 | FU ---
[facility] Nutrition Therapy DATE: 09/09/16 Patient: LYDIA FOSTER Physician: ANGELO Address: [address] Room/Bed: [address] [place] [address], Zip: [place] [address] Admit Date: 08/31/16 Date of : 58 Height: 5 2 Weight: 96 43.6 NUTRITION MONITORING/FOLLOW-UP: Reason: Nutrition follow-up Admitting dx: 56 y/o female admitted with SOA Anthropometrics: Ht: 62", admission wt: 88 lbs, current wt: 96 lbs, BMI: 17.6 (underweight; based on current weight) Labs: Na 130, glucose 118, ALT 49 Meds: Xanax, rocephin, synthroid, prednisone, PPI, phenergan/zofran prn, furosemide GI: BM 09/08, general nausea noted Skin: No significant issues, no edema Estimated Nutrition Needs: Increased due to underweight status Assessment: Chart reviewed, events noted. Patient is on 3L nasal cannula. She remains on 2g sodium/6 sm meals diet with chocolate Ensure compact. Reports consuming 50-75% of 3 meals per day and 2-3 Ensures per day. Pt was questioning how the 6 sm meals diet works- RD explained and encouraged her to speak with Marge in the call center if she had any further questions or concerns. Reports general nausea is pretty well controlled with Zofran. Note weight increase of 8 lbs since admission, however she is still clinically underweight. See nutrition dx and goal below, will continue to follow. Dx: Underweight r/t clinical condition, nausea, poor appetite AEB BMI 16, 81% IBW, reported oral intake - IMPROVING (nausea better controlled, appetite improved, weight gain noted) Intervention: Continue current dietary regimen, D/C low sodium restriction once able Monitoring, Evaluation and Goals: 1. PO intake > 50% of meals - MET 2. Promote gradual weight gain - IN PROGRESS (gained 8 lbs since admission) 3. GI function WNL - IN PROGRESS Monitor: per protocol, criteria to determine if above goals met Recommendations: [facility] Nutrition Therapy DATE: 09/09/16 Patient: LYDIA FOSTER Physician: ANGELO Address: [address] Room/Bed: [address] [place] [address], Zip: [place] [address] Admit Date: 08/31/16 Date of : 58 Height: 5 2 Weight: 96 43.6 1. Continue current dietary regimen: 2g Na/6 sm meals diet + chocolate Ensure Compact TID. D/C low sodium restriction once hyponatremia improves. Fluids per MD. 2. Continue Zofran prn for medical management of nausea. 3. Continue to weigh q 3 days for monitoring purposes. Status: Mild nutrition risk Respectfully, Shannan Fletcher, TY, LD Food and Nutritional Services [facility] cc: client file
--- NOTE | ~2016-08-31 | CO ---
Unit #: [id number] #: [id number] Patient: LYDIA FOSTER [id number] [address] [place], [place] [address] [id number] I MR#: [id number] NAME: LYDIA FOSTER ROOM: 317 Age: 56 Sex: F Admission Date: 08/31/2016 : 1960 Attending Physician: Du Horvath M.D. Primary Care Physician: Rivas Galvez M.D. CONSULTATION REPORT REASON FOR CONSULTATION Chest pain and elevated troponin. HISTORY OF PRESENT ILLNESS This is a 56-year-old white female, who was seen by Dr. Zarco in 04/2016 for evaluation of chest pain. She had an echocardiogram, which showed her to have left ventricular systolic dysfunction with an ejection fraction was 30% to 35%. She had a subsequent cardiac catheterization where she was found to have angiographically normal coronaries. She is known to have risk factors for ischemic heart disease include hypertension, hyperlipidemia, and family history of premature coronary artery disease, remote history of nicotine abuse. The patient presents to the emergency room with a complaint of abdominal pain, nausea, and diarrhea for 3 to 4 days. Diarrhea initially was nonbloody, but she awakened at 4 a.m. to use the bathroom and noted bright red blood in her diarrhea stools. She panic and began to have substernal chest tightness that was nonradiating to her neck, arm, or jaw. She had associated shortness of breath. Upon further questioning, the patient states she has been breathing worse in the past few days. She has had off and on chest pain all week. She denies paroxysmal nocturnal dyspnea, orthopnea, or leg edema. In the emergency room, she was found to be hypokalemic with potassium level of 2.6. Troponin 1.68 with inferolateral ischemic changes on EKG. Chest x-ray noted for COPD. PAST MEDICAL HISTORY 1. 2D echocardiogram on 04/17/2016 showed an ejection fraction of 30% to 35% with impaired left ventricular relaxation. There was severe hypokinetic motion of the anterior septal and anterior wall of the left ventricle. 2. Cardiac catheterization on 04/17/[address] Novak, which showed angiographically normal coronaries with an ejection fraction of 55%. 3. Chronic systolic/diastolic heart failure. 4. Hypertension. 5. Hyperlipidemia. 6. COPD, on home oxygen. 7. Former smoker. PAST SURGICAL HISTORY 1. Tubal ligation. 2. Appendectomy. 3. Colon biopsy. Unit #: [id number] #: [id number] Patient: LYDIA FOSTER SOCIAL HISTORY The patient is disabled. She quit smoking in 2016, but previously smoked up to 7 cigarettes a day. She denies illicit drug or alcohol use. FAMILY HISTORY Father at age 45 from a myocardial infarction. ALLERGIES Papaya and penicillin. MEDICATIONS Listed home medications; Remeron, Seroquel, Zestril, Prilosec, Prozac, Synthroid, Spiriva, Symbicort, Proventil. REVIEW OF SYSTEMS CONSTITUTIONAL: Positive for weakness and fatigue. Has no fever or chills. HEENT: No headache, hearing or vision changes, difficulty with swallowing. No dizziness. CARDIOVASCULAR: Has chest pain as described in the HPI. Denies palpitations. No paroxysmal nocturnal dyspnea or orthopnea. Denies syncope or near syncope. RESPIRATORY: Positive for dyspnea and occasional nonproductive cough. No hemoptysis. GASTROINTESTINAL: Positive for abdominal pain, nausea, and vomiting. Denies hematemesis or melena. Reports hematochezia. EXTREMITIES: Negative for lower extremity edema. PHYSICAL EXAMINATION VITAL SIGNS: Blood pressure 133/90, heart rate 122, temperature 98.3, BMI of 17. GENERAL: This is a very thin frail 56-year-old middle-aged white female, who appears much older than her stated age. She is in no acute distress. NEUROLOGIC: She is awake, alert, and oriented. Noted for anxiety. No focal weaknesses. NECK: Trachea is midline. No thyromegaly or lymphadenopathy. No jugular venous distention. HEART: S1, S2. Heart sounds are normal. No murmurs. No rubs or clicks. Regular rate and rhythm. LUNGS: Diminished breath sounds with expiratory wheezes in both lungs with faint rhonchi. No rales. ABDOMEN: Soft and nontender with bowel sounds are positive. No organomegaly. EXTREMITIES: Pedal pulses are palpable without leg edema. SKIN: Warm and dry. DIAGNOSTIC STUDIES LABORATORY RESULTS: Hemoglobin 14.3, hematocrit 42.8, platelet count 239, white count 6.3. Sodium 129, potassium 2.6, BUN 7, creatinine 0.6, glucose 117. Troponin 1.68 to 1.18. IMAGING STUDIES: Chest x-ray noted for COPD. CARDIOVASCULAR STUDIES: EKG; sinus tachycardia with a rate of 107 beats per minute with inferolateral ischemic changes. Right axis deviation and poor R-wave progression. IMPRESSION Unit #: [id number] #: [id number] Patient: LYDIA FOSTER 1. Probable gastroenteritis with abdominal pain, nausea, and diarrhea. 2. Questionable gastrointestinal bleed. 3. Elevated troponin peaked at 1.68. 4. Normal coronaries per cardiac catheterization on 04/17/2016. 5. Hyponatremia. 6. Severe hypokalemia. 7. Chronic systolic/diastolic heart failure with reduced ejection fraction of 30% to 35% improved to 55% per cardiac catheterization in 04/2016. 8. Chronic obstructive pulmonary disease exacerbation. 9. Hypertension. 10. Hyperlipidemia. PLAN 1. Cardiology was consulted for elevated troponin and chest pain. Troponin elevation could be secondary to supply demand given she had normal coronaries per cardiac catheterization in 04/2016. Her EKG is abnormal. We will continue to trend troponin and repeat EKG. 2. Start on aspirin. No overt heart failure is noted on examination. 3. Supplement potassium. 4. Further recommendations to follow. Thank you for allowing us to assist with this patient's care. Dictated by... Brody PlasenciaPLoidaRLoidaNLoida for Natalie Ball M.D. MARGARETTE/louise TD: 09/02/2016 01:22 JOB #: [id number] CONSULTATION REPORT Page 1 of 1 X Jayce Hu APRN X CONSULTATION REPORT
--- NOTE | ~2016-08-31 | EKG ---
PATIENT: LYDIA FOSTER UNIT #: [id number] Ventricular Rate: 100 BPM Atrial Rate: 100 BPM P-R Interval: 114 ms QRS Duration: 108 ms Q-T Interval: 394 ms QTC Calculation(Bezet): 508 ms P [place]: 85 degrees Calculated R [place]: 76 degrees Calculated T [place]: -133 degrees Diagnosis Line: Normal sinus rhythm Diagnosis Line: Septal infarct (cited on or before 31-AUG-2016) Diagnosis Line: T wave abnormality, consider inferolateral Diagnosis Line: ischemia Diagnosis Line: Abnormal ECG Diagnosis Line: When compared with ECG of 02-SEP-2016 06:17, Diagnosis Line: Serial changes of Septal infarct Present Diagnosis Line: Confirmed by MARY CARMEN WATSON MD ([id number]) on Diagnosis Line: 09/05/2016 7:29:14 AM INTERPRETING MD: SHIRLEY MORENO
--- NOTE | ~2016-08-31 | EKG ---
PATIENT: LYDIA FOSTER UNIT #: [id number] Ventricular Rate: 89 BPM Atrial Rate: 89 BPM P-R Interval: 138 ms QRS Duration: 104 ms Q-T Interval: 482 ms QTC Calculation(Bezet): 586 ms P [place]: 78 degrees Calculated R [place]: 90 degrees Calculated T [place]: -114 degrees Diagnosis Line: Normal sinus rhythm Diagnosis Line: Rightward axis Diagnosis Line: Septal infarct (cited on or before 31-AUG-2016) Diagnosis Line: ST and Marked T wave abnormality, consider Diagnosis Line: anterolateral ischemia Diagnosis Line: Prolonged QT Diagnosis Line: Abnormal ECG Diagnosis Line: When compared with ECG of 31-AUG-2016 11:37, Diagnosis Line: Serial changes of Septal infarct Present Diagnosis Line: Confirmed by ANA MORENO, ROSALBA ([id number]) on Diagnosis Line: 09/01/2016 12:23:08 PM INTERPRETING MD: CE
--- NOTE | ~2016-08-31 | HP ---
Unit #: [id number] #: [id number] Patient: LYDIA FOSTER [id number] [address] [place], [place] [address] [id number] I MR#: [id number] NAME: LYDIA FOSTER ROOM: [facility] Age: 56 Sex: F Admission Date: 08/31/2016 : 1960 Attending Physician: Du Horvath M.D. Primary Care Physician: Rivas Galvez M.D. HISTORY AND PHYSICAL HISTORY OF PRESENT ILLNESS This is a pleasant lady with a history of shortness of air. She is seen for chest pain by Dr. Zarco in April. The patient had echocardiogram which showed left ventricular systolic dysfunction but had normal coronaries. Therefore, she was treated with medical management. The patient presents to the emergency room with complaint of abdominal pain, nausea, and diarrhea for three to four days. Initially, nonbloody diarrhea. However, it progressed to very dark stools. The patient had chest tightness, neck, arm, and jaw. Her chest tightness did not radiate. The patient has been having associated shortness of breath for past couple of days and one week of chest pain. The patient denies paroxysmal nocturnal dyspnea, orthopnea, or leg edema. Patient was found to be hypokalemic with troponin max of 1.68. The patient has a PFT consistent with moderate to severe obstruction. Last one appears to have been done in 2012. The patient had been seen in our office one month earlier with bronchitis. REVIEW OF SYSTEMS Significant for sinus congestion, chest discomfort, shortness of breath, cough, asthma, wheezes. PHYSICAL EXAMINATION GENERAL: The patient is well nourished in no acute distress. Patient shows no (1) . Otherwise no complaints. HEENT: Extraocular movements intact. CHEST: Clear to auscultation bilaterally. CARDIOVASCULAR: (2) . ABDOMEN: Soft, nontender, nondistended. EXTREMITIES: Shows no evidence of edema. PAST MEDICAL HISTORY 1. Congestive heart failure. 2. Echocardiogram showing 30% ejection fraction. No evidence of stentable disease on cath. PAST SURGICAL HISTORY 1. Tubal ligation. 2. Appendectomy. 3. Colon biopsy. SOCIAL HISTORY The patient is disabled and quit smoking in 2016, smoked up to seven cigarettes a day. Denies illicit drug use or alcohol use. Unit #: [id number] #: [id number] Patient: LYDIA FOSTER FAMILY HISTORY Father at age 45 from a presumed myocardial rupture. HOME MEDICATIONS 1. Prednisone taper. 2. Proventil 90 mcg inhaled four times a day. 3. Quetiapine 25 mg nightly. 4. Spiriva 18 mcg inhaled daily. 5. Remeron. 6. Seroquel. 7. Zestril. 8. Prilosec. 9. Prozac. 10. Synthroid. 11. Spiriva. 12. Symbicort. DIAGNOSTIC STUDIES LABORATORY: Laboratory data shows elevated troponin, slight anemia, as well as, diffuse infiltrates bilaterally. Dictated by Benigno Lopez TD: 09/05/2016 17:10 JOB #: [id number] HISTORY AND PHYSICAL Page 1 of 1 X Ángel Jama MD X HISTORY AND PHYSICAL
--- NOTE | ~2016-08-31 | CR72 ---
[facility] A Service of [facility] RADIOLOGY TEXT RESULTS PATIENT: LYDIA FOSTER LOCATION: [facility] 302-01 : 58 UNIT #: [id number] AGE: [address]: Du Horvath MD SEX: F ORDER DR: [id number] [facility] [address] [facility]. [place], [place] [address] [id number] MR#: [id number] Acc #: [id number] NAME: LYDIA FOSTER. : 1960 SEX: F STUDY DATE/TIME: 08/31/2016 11:52 UNIT: KIERAN ROOM: STUDY DESCRIPTION: CR Chest Single View Portable Attending Physician: Glenn Win M.D. Ordering Physician: Glenn Win M.D. Primary Care Physician: Rivas Galvez M.D. MEDICAL IMAGING REPORT This report is preliminary unless electronic signature is present EXAM Portable AP view of the chest COMPARISON April 25, 2016 and April 21, 2016. HISTORY 56-year-old female with dyspnea for 1 week. History of hypertension and COPD. Prior tuberculosis. FINDINGS Breast shadows are noted over both lung bases. Cardiomediastinal silhouette is normal. No evidence of pneumothorax. There is stable scarring in the right pulmonary apex. No focal airspace disease or pleural effusion. There is lung hyperexpansion which may reflect COPD. IMPRESSION No acute radiographic abnormality of the chest. Findings which may reflect COPD. Dictated by... Pankaj Paredes M.D. THIS IS AN ELECTRONICALLY VERIFIED REPORT Pankaj Paredes M.D. at 09/07/2016 4:59 PM BLM/pcl TD: 08/31/2016 16:02 JOB #: [id number] MEDICAL IMAGING REPORT [facility] A Service of [facility] RADIOLOGY TEXT RESULTS PATIENT: LYDIA FOSTER LOCATION: [facility] 302-01 : 58 UNIT #: [id number] AGE: [address]: Du Horvath MD SEX: F ORDER DR: Page 1 of 1 COPY
--- NOTE | ~2016-08-31 | CR72 ---
[facility] A Service of [facility] RADIOLOGY TEXT RESULTS PATIENT: LYDIA FOSTER LOCATION: [facility] 302- : 58 UNIT #: [id number] AGE: [address]: Du Horvath MD SEX: F ORDER DR: [id number] [facility] [address] [facility]. [place], [place] [address] [id number] I MR#: [id number] Acc #: [id number] NAME: LYDIA FOSTER : 1960 SEX: F STUDY DATE/TIME: 09/10/2016 7:17 [facility] STUDY DESCRIPTION: CR Chest Single View Portable Attending Physician: Du Horvath M.D. Ordering Physician: Du Horvath M.D. Primary Care Physician: Rivas Galvez M.D. MEDICAL IMAGING REPORT This report is preliminary unless electronic signature is present EXAM Frontal chest, 09/10/2016. INDICATIONS 56-year-old female with shortness of air and respiratory failure and weakness. Symptoms 5 days, hypertension. TECHNIQUE Frontal chest compared with 09/05/2016. FINDINGS Cardiac silhouette is unremarkable. The vascularity is normal. There is old healed granulomatous disease and COPD. Apical scarring present, but no pneumothorax. No dense consolidation or effusion. IMPRESSION 1. Chronic lung changes. No definite superimposed active disease. Dictated by... Chris Bell M.D. THIS IS AN ELECTRONICALLY VERIFIED REPORT Chris Bell M.D. at 09/10/2016 1:44 PM Kaushal TD: 09/10/2016 11:04 JOB #: [id number] MEDICAL IMAGING REPORT Page 1 of 1 COPY
--- NOTE | ~2016-08-31 | A ---
[facility] Nutrition Therapy DATE: 09/01/16 Patient: LYDIA FOSTER Physician: ANGELO Address: [address] Room/Bed: [address] [place] [address], Zip: [place] [address] Admit Date: 08/31/16 Date of : 58 Height: 5 2 Weight: 88 40 NUTRITIONAL ASSESSMENT: REASON: Low BMI 56 y/o female admitted for SOA PMH: COPD, GERD, depression, hypothyroid Anthropometrics: ht: 5'2" wt: 88# (40 kg) BMI 16, 80%IBW Labs: Na+ 133, K+ 5.4, Cl- 96, Glu 122, AST 96, ALT 68, Mg++ 1.4 Meds: zofran, solu-medrol, protonix, lovenox, synthroid I/O & Bowel function: 360/no data. BM 09/01 diarrhea Skin Integrity: WNL. No edema. Estimated Nutrition Needs: Increased 2' to low BMI Assessment: Chart reviewed, events noted. Pt seen for low BMI. Pt reports 95# as her normal weight, indicating an 8# weight loss over the past few weeks. Pt states she has a very poor appetite and is very naseous. Pt had half of a sandwich and 1 ensure compact for lunch. Pt states she would like to have 6 small meals and continue getting the ensure compact. No questions at this time. RD will continue to follow. Dx: Underweight r/t current condition, nausea, poor appetite AEB pt reported intake and appetite, low BMI of 16. Intervention: 1. 6 small meals 2. Ensure compact BID Monitoring, Evaluation and Goals: 1. Intake; consume/tolerate >50% of all meals and supplements 2. Weight; prevent weight loss, promote weight gain 3. GI; promote regular GI function Recommendations: 1. Continue regular diet, add 6 small meals to diet order. 2. Continue order of Ensure compact chocolate BID. [facility] Nutrition Therapy DATE: 09/01/16 Patient: LYDIA FOSTER Physician: ANGELO Address: [address] Room/Bed: [address] [place] [address], Zip: [place] [address] Admit Date: 08/31/16 Date of : 58 Height: 5 2 Weight: 88 40 3. Encourage adequate PO intake. RD will f/u per protocol as pt is at moderate nutritional risk. Respectfully, MEMO PEREZ, trestle mainternance laborer Ramirez Szymanski MS, RD, LD [employer] [facility] cc: client file
[2016-08-31 11:57] LABS: ARTERIAL BLD GAS O2 SATURATION 95.1 % (90.0-100.0); ARTERIAL BLOOD GAS CARBOXY HB 0.8 %sat (0.0-9.0); ARTERIAL BLOOD GAS MET HB 0.9 %sat (0.0-2.0); ARTERIAL BLOOD GAS pH 7.464 (7.350-7.450)
[2016-08-31 12:00] LABS: ARTERIAL BLOOD GAS ALLEN TEST NORMAL; ARTERIAL BLOOD GAS ART SITE LEFT RADIAL; ARTERIAL BLOOD GAS DELIVERY NASAL CANNULA; ARTERIAL BLOOD GAS PO2 76.9 mmHg (80.0-100); ARTERIAL DRAW? YES
[2016-08-31 12:03] LABS: BASOPHIL% 0.5 % (0-2.5); EOSINOPHIL% 0.2 % (0.0-7.0); HEMATOCRIT 42.8 % (35.0-45.0); HEMOGLOBIN 14.3 gm/dL (12.0-16.0); LYMPHOCYTE# 0.9 X10e3 (1.0-3.5); LYMPHOCYTE% 14.6 % (17.0-45.0); MEAN CELL VOLUME 89.6 FL (83-96); MEAN CORPUSCULAR HEMOGLOBIN 29.9 PG (28-34); MEAN CORPUSCULAR HGB CONC 33.4 g/dL (30-36); MEAN PLATELET VOLUME 8.4 FL (6.5-11.5); MONOCYTE# 0.7 X10e3 (0-1.0); MONOCYTE% 10.7 % (3.0-12.0); NEUTROPHIL# 4.7 X10e3 (1.5-7.1); PLATELET COUNT 239 X10e3 (140-420); RED BLOOD COUNT 4.78 X10e (3.90-5.30); RED CELL DISTRIBUTION WIDTH 13.6 % (11.0-15.5); WHITE BLOOD COUNT 6.3 X10e3 (4.0-10.5)
[2016-08-31 12:07] LABS: DIFF IND NO
[2016-08-31 12:18] LABS: POC - CKMB 13.2 ng/mL (0.0-7.9); POC - TROPONIN 1.68 ng/mL (<=0.05)
[2016-08-31 12:38] LABS: ALBUMIN SERUM 3.8 g/dL (3.5-5.0); BILIRUBIN, DIRECT 0.1 mg/dL (0.0-0.2); BILIRUBIN,INDIRECT 0.7 mg/dL (0.0-0.9); BILIRUBIN,TOTAL 0.8 mg/dL (0.2-2.0); BUN/CREATININE RATIO 11.66; CALCIUM SERUM 8.3 mg/dL (8.4-10.2); CREATININE SERUM 0.6 mg/dL (0.6-1.4); GLOM FILT RATE Estimated 101.2 mL/min (>60); PROTEIN TOTAL SERUM 7.1 g/dL (6.0-8.3)
[2016-08-31 12:40] LABS: POTASSIUM 2.6 mmol/L (3.5-5.1)
[2016-08-31 14:52] LABS: POC - TROPONIN 1.18 ng/mL (<=0.05)
[2016-08-31 18:33] LABS: CHOLESTEROL 143 mg/dL (0-200); HDL CHOLESTEROL 50 mg/dL (35-95); LDL CHOLESTEROL 75 mg/dL (-130); LDL/HDL RATIO 2 RATIO (0-4); TRIGLYCERIDES 90 mg/dL (10-160)
[2016-09-01 05:45] LABS: BASOPHIL% 0.3 % (0-2.5); HEMATOCRIT 45.7 % (35.0-45.0); LYMPHOCYTE# 1.1 X10e3 (1.0-3.5); LYMPHOCYTE% 25.9 % (17.0-45.0); MEAN CELL VOLUME 91.7 FL (83-96); MEAN CORPUSCULAR HGB CONC 32.8 g/dL (30-36); MEAN PLATELET VOLUME 9.2 FL (6.5-11.5); MONOCYTE# 0.3 X10e3 (0-1.0); MONOCYTE% 7.6 % (3.0-12.0); NEUTROPHIL# 2.8 X10e3 (1.5-7.1); NEUTROPHIL% 66.2 % (40-75); PLATELET COUNT 263 X10e3 (140-420); RED BLOOD COUNT 4.99 X10e (3.90-5.30); RED CELL DISTRIBUTION WIDTH 13.5 % (11.0-15.5); WHITE BLOOD COUNT 4.3 X10e3 (4.0-10.5)
[2016-09-01 05:46] LABS: DIFF IND NO
[2016-09-01 07:06] LABS: CREATININE SERUM 0.6 mg/dL (0.6-1.4); GLOM FILT RATE Estimated 101.2 mL/min (>60)
[2016-09-01 07:11] LABS: POTASSIUM 5.4 mmol/L (3.5-5.1)
[2016-09-02 07:04] LABS: CALCIUM SERUM 8.2 mg/dL (8.4-10.2); CREATININE SERUM 0.6 mg/dL (0.6-1.4); GLOM FILT RATE Estimated 101.2 mL/min (>60); MAGNESIUM 1.9 mg/dL (1.6-3.0); POTASSIUM 4.1 mmol/L (3.5-5.1)
[2016-09-02 12:04] LABS: URINE APPEARANCE CLEAR; URINE BILIRUBIN NEG (NEG); URINE BLOOD NEG (NEG); URINE COLOR YELLOW; URINE GLUCOSE 500 MG/DL (NEG); URINE KETONE NEG (NEG); URINE LEUKOCYTE ESTERASE NEG (NEG); URINE NITRATE NEG (NEG); URINE PROTEIN NEG (NEG); URINE SPECIFIC GRAVITY 1.014 (1.003-1.035); URINE UROBILINOGEN 0.2 MG/DL (NEG)
[2016-09-02 12:06] LABS: URINE SOURCE CLEAN CATCH
[2016-09-03 04:59] LABS: ARTERIAL BLD GAS O2 SATURATION 98.2 % (90.0-100.0); ARTERIAL BLOOD GAS HCO3 25.9 mmol/L; ARTERIAL BLOOD GAS MET HB 0.8 %sat (0.0-2.0)
[2016-09-03 05:03] LABS: ARTERIAL BLOOD GAS ALLEN TEST NORMAL; ARTERIAL BLOOD GAS ART SITE LEFT RADIAL; ARTERIAL BLOOD GAS DELIVERY NASAL CANNULA; ARTERIAL BLOOD GAS PCO2 82.6 mmHg (35.0-45.0); ARTERIAL BLOOD GAS pH 7.104 (7.350-7.450); ARTERIAL DRAW? YES
[2016-09-03 06:17] LABS: HEMATOCRIT 36.3 % (35.0-45.0); HEMOGLOBIN 11.6 gm/dL (12.0-16.0); MEAN CELL VOLUME 92.5 FL (83-96); MEAN CORPUSCULAR HEMOGLOBIN 29.6 PG (28-34); MEAN PLATELET VOLUME 8.6 FL (6.5-11.5); RED BLOOD COUNT 3.92 X10e (3.90-5.30); RED CELL DISTRIBUTION WIDTH 13.7 % (11.0-15.5); WHITE BLOOD COUNT 16.6 X10e3 (4.0-10.5)
[2016-09-03 06:28] LABS: ALBUMIN SERUM 3.4 g/dL (3.5-5.0); BILIRUBIN,TOTAL 0.5 mg/dL (0.2-2.0); BUN/CREATININE RATIO 22.5; CALCIUM SERUM 7.7 mg/dL (8.4-10.2); CREATININE SERUM 0.4 mg/dL (0.6-1.4); GLOM FILT RATE Estimated 115.6 mL/min (>60); POTASSIUM 4.2 mmol/L (3.5-5.1); PROTEIN TOTAL SERUM 6.2 g/dL (6.0-8.3)
[2016-09-03 06:58] LABS: ARTERIAL BLD GAS O2 SATURATION 97.5 % (90.0-100.0); ARTERIAL BLOOD GAS CARBOXY HB 0.1 %sat (0.0-9.0); ARTERIAL BLOOD GAS HCO3 26.3 mmol/L; ARTERIAL BLOOD GAS MET HB 0.9 %sat (0.0-2.0); ARTERIAL BLOOD GAS pH 7.207 (7.350-7.450)
[2016-09-03 06:59] LABS: ARTERIAL BLOOD GAS PCO2 66.2 mmHg (35.0-45.0); ARTERIAL DRAW? YES
[2016-09-03 07:00] LABS: ARTERIAL BLOOD GAS ALLEN TEST NORMAL; ARTERIAL BLOOD GAS ART SITE LEFT RADIAL; ARTERIAL BLOOD GAS DELIVERY BIPAP
[2016-09-04 05:24] LABS: BASOPHIL% 0.2 % (0-2.5); HEMATOCRIT 33.2 % (35.0-45.0); HEMOGLOBIN 10.9 gm/dL (12.0-16.0); LYMPHOCYTE# 0.9 X10e3 (1.0-3.5); LYMPHOCYTE% 15.3 % (17.0-45.0); MEAN CORPUSCULAR HEMOGLOBIN 30.3 PG (28-34); MEAN CORPUSCULAR HGB CONC 32.9 g/dL (30-36); MEAN PLATELET VOLUME 8.7 FL (6.5-11.5); MONOCYTE# 0.4 X10e3 (0-1.0); MONOCYTE% 7.1 % (3.0-12.0); NEUTROPHIL# 4.7 X10e3 (1.5-7.1); NEUTROPHIL% 77.4 % (40-75); PLATELET COUNT 297 X10e3 (140-420); RED BLOOD COUNT 3.61 X10e (3.90-5.30); RED CELL DISTRIBUTION WIDTH 13.6 % (11.0-15.5)
[2016-09-04 05:37] LABS: DIFF IND NO
[2016-09-04 05:43] LABS: ALBUMIN SERUM 3.3 g/dL (3.5-5.0); BILIRUBIN,TOTAL 0.8 mg/dL (0.2-2.0); BUN/CREATININE RATIO 17.14; CREATININE SERUM 0.7 mg/dL (0.6-1.4); GLOM FILT RATE Estimated 96.2 mL/min (>60); MAGNESIUM 1.5 mg/dL (1.6-3.0); PHOSPHOROUS 2.9 mg/dL (2.5-4.6); POTASSIUM 3.7 mmol/L (3.5-5.1); PROTEIN TOTAL SERUM 5.8 g/dL (6.0-8.3)
[2016-09-04 16:55] LABS: BUN/CREATININE RATIO 25.71; CREATININE SERUM 0.7 mg/dL (0.6-1.4); GLOM FILT RATE Estimated 96.2 mL/min (>60); MAGNESIUM 2.2 mg/dL (1.6-3.0); POTASSIUM 3.7 mmol/L (3.5-5.1)
[2016-09-05 05:37] LABS: BASOPHIL% 0.1 % (0-2.5); HEMATOCRIT 32.2 % (35.0-45.0); HEMOGLOBIN 10.6 gm/dL (12.0-16.0); LYMPHOCYTE# 0.7 X10e3 (1.0-3.5); LYMPHOCYTE% 14.4 % (17.0-45.0); MEAN CELL VOLUME 91.1 FL (83-96); MEAN CORPUSCULAR HEMOGLOBIN 29.9 PG (28-34); MEAN CORPUSCULAR HGB CONC 32.8 g/dL (30-36); MEAN PLATELET VOLUME 8.4 FL (6.5-11.5); MONOCYTE# 0.6 X10e3 (0-1.0); MONOCYTE% 11.7 % (3.0-12.0); NEUTROPHIL# 3.5 X10e3 (1.5-7.1); NEUTROPHIL% 73.8 % (40-75); PLATELET COUNT 314 X10e3 (140-420); RED BLOOD COUNT 3.53 X10e (3.90-5.30); RED CELL DISTRIBUTION WIDTH 13.5 % (11.0-15.5); WHITE BLOOD COUNT 4.8 X10e3 (4.0-10.5)
[2016-09-05 05:40] LABS: DIFF IND NO
[2016-09-05 06:23] LABS: BUN/CREATININE RATIO 25.71; CALCIUM SERUM 8.3 mg/dL (8.4-10.2); CREATININE SERUM 0.7 mg/dL (0.6-1.4); GLOM FILT RATE Estimated 96.2 mL/min (>60); POTASSIUM 4.1 mmol/L (3.5-5.1)
[2016-09-06 10:54] LABS: BASOPHIL% 0.6 % (0-2.5); DIFF IND NO; HEMATOCRIT 35.9 % (35.0-45.0); HEMOGLOBIN 11.6 gm/dL (12.0-16.0); LYMPHOCYTE# 0.8 X10e3 (1.0-3.5); LYMPHOCYTE% 12.7 % (17.0-45.0); MEAN CELL VOLUME 91.7 FL (83-96); MEAN CORPUSCULAR HEMOGLOBIN 29.7 PG (28-34); MEAN CORPUSCULAR HGB CONC 32.4 g/dL (30-36); MEAN PLATELET VOLUME 8.4 FL (6.5-11.5); MONOCYTE# 0.3 X10e3 (0-1.0); NEUTROPHIL# 5.1 X10e3 (1.5-7.1); NEUTROPHIL% 81.7 % (40-75); PLATELET COUNT 406 X10e3 (140-420); RED BLOOD COUNT 3.91 X10e (3.90-5.30); RED CELL DISTRIBUTION WIDTH 13.8 % (11.0-15.5); WHITE BLOOD COUNT 6.2 X10e3 (4.0-10.5)
[2016-09-06 11:16] LABS: CALCIUM SERUM 8.7 mg/dL (8.4-10.2); CREATININE SERUM 0.5 mg/dL (0.6-1.4); GLOM FILT RATE Estimated 107.4 mL/min (>60); MAGNESIUM 1.7 mg/dL (1.6-3.0); POTASSIUM 4.4 mmol/L (3.5-5.1)
[2016-09-07 06:14] LABS: HEMATOCRIT 38.5 % (35.0-45.0); HEMOGLOBIN 12.5 gm/dL (12.0-16.0); MEAN CELL VOLUME 92.8 FL (83-96); MEAN CORPUSCULAR HEMOGLOBIN 30.2 PG (28-34); MEAN CORPUSCULAR HGB CONC 32.5 g/dL (30-36); RED BLOOD COUNT 4.15 X10e (3.90-5.30); RED CELL DISTRIBUTION WIDTH 13.9 % (11.0-15.5); WHITE BLOOD COUNT 8.5 X10e3 (4.0-10.5)
[2016-09-08 08:12] LABS: CALCIUM SERUM 8.5 mg/dL (8.4-10.2); CREATININE SERUM 0.5 mg/dL (0.6-1.4); GLOM FILT RATE Estimated 107.4 mL/min (>60); POTASSIUM 4.2 mmol/L (3.5-5.1)
[2016-09-09 05:15] LABS: ALBUMIN SERUM 3.2 g/dL (3.5-5.0); BILIRUBIN,TOTAL 0.4 mg/dL (0.2-2.0); CALCIUM SERUM 7.9 mg/dL (8.4-10.2); CREATININE SERUM 0.5 mg/dL (0.6-1.4); GLOM FILT RATE Estimated 107.4 mL/min (>60); POTASSIUM 3.7 mmol/L (3.5-5.1)
[2016-09-10 03:57] LABS: ARTERIAL BLD GAS O2 SATURATION 94.3 % (90.0-100.0); ARTERIAL BLOOD GAS CARBOXY HB 0.3 %sat (0.0-9.0); ARTERIAL BLOOD GAS HCO3 30.5 mmol/L; ARTERIAL BLOOD GAS MET HB 0.8 %sat (0.0-2.0); ARTERIAL BLOOD GAS PCO2 48.3 mmHg (35.0-45.0); ARTERIAL BLOOD GAS pH 7.409 (7.350-7.450)
[2016-09-10 04:00] LABS: ARTERIAL BLOOD GAS ALLEN TEST NORMAL; ARTERIAL BLOOD GAS ART SITE RIGHT RADIAL; ARTERIAL BLOOD GAS DELIVERY NASAL CANNULA; ARTERIAL BLOOD GAS LITER FLOW 2.5; ARTERIAL BLOOD GAS PO2 76.8 mmHg (80.0-100); ARTERIAL DRAW? YES
[2016-09-10 07:29] LABS: ALBUMIN SERUM 3.4 g/dL (3.5-5.0); BILIRUBIN,TOTAL 0.2 mg/dL (0.2-2.0); CALCIUM SERUM 8.4 mg/dL (8.4-10.2); CREATININE SERUM 0.5 mg/dL (0.6-1.4); GLOM FILT RATE Estimated 107.4 mL/min (>60); POTASSIUM 3.6 mmol/L (3.5-5.1); PROTEIN TOTAL SERUM 6.1 g/dL (6.0-8.3)
[2016-09-10 07:41] LABS: BASOPHIL% 0.3 % (0-2.5); HEMATOCRIT 37.5 % (35.0-45.0); HEMOGLOBIN 12.2 gm/dL (12.0-16.0); LYMPHOCYTE# 1.7 X10e3 (1.0-3.5); MEAN CELL VOLUME 91.1 FL (83-96); MEAN CORPUSCULAR HEMOGLOBIN 29.7 PG (28-34); MEAN CORPUSCULAR HGB CONC 32.6 g/dL (30-36); MEAN PLATELET VOLUME 7.8 FL (6.5-11.5); MONOCYTE# 0.9 X10e3 (0-1.0); MONOCYTE% 7.5 % (3.0-12.0); NEUTROPHIL# 9.4 X10e3 (1.5-7.1); NEUTROPHIL% 78.2 % (40-75); PLATELET COUNT 536 X10e3 (140-420); RED BLOOD COUNT 4.11 X10e (3.90-5.30); RED CELL DISTRIBUTION WIDTH 14.3 % (11.0-15.5); WHITE BLOOD COUNT 12.1 X10e3 (4.0-10.5)
[2016-09-10 07:42] LABS: DIFF IND YES
[2016-09-10 11:31] LABS: HYPERSEGMENTED POLYS PRESENT; PLATELET ESTIMATE INCREASED (NORMAL)
[2016-09-11 06:04] LABS: BUN/CREATININE RATIO 26.66; CALCIUM SERUM 8.9 mg/dL (8.4-10.2); CREATININE SERUM 0.6 mg/dL (0.6-1.4); GLOM FILT RATE Estimated 101.2 mL/min (>60); POTASSIUM 4.3 mmol/L (3.5-5.1)
== END 2016-09-11 13:21 | DRG 280 ==
LOC: CED 11:19 → CEDOF 16:12 → C3A PCU 16:12 → CED 16:23 → CEDOF 16:23 → C3A PCU 17:45 → CICCU3 09-03 14:41 → C3A PCU 09-06 02:18
PROVIDERS: Emergency Medicine; Internal Medicine Cardiovascular Disease; Internal Medicine Pulmonary Disease; Nurse Practitioner
DX: I21.4 Non-ST elevation (NSTEMI) myocardial infarction (principal); I50.43 Acute on chronic combined systolic (congestive) and diastolic (congestive) heart failure; J96.21 Acute and chronic respiratory failure with hypoxia; E41 Nutritional marasmus; J44.1 Chronic obstructive pulmonary disease with (acute) exacerbation; E87.1 Hypo-osmolality and hyponatremia; Z68.1 Body mass index [BMI] 19.9 or less, adult; F41.9 Anxiety disorder, unspecified; I11.0 Hypertensive heart disease with heart failure; E78.5 Hyperlipidemia, unspecified; Z82.49 Family history of ischemic heart disease and other diseases of the circulatory system; Z99.81 Dependence on supplemental oxygen; Z87.891 Personal history of nicotine dependence; Z98.51 Tubal ligation status; Z88.0 Allergy status to penicillin; E87.6 Hypokalemia; R10.9 Unspecified abdominal pain; R11.2 Nausea with vomiting, unspecified
CPT/HCPCS: 36415; 36600; 71010; 80048; 80053; 80061; 80076; 81003; 82308; 82553; 82803; 83605; 83735; 83880; 84100; 84484; 85025; 85027; 85379; 87040; 93005; 94640; 94660; 94760; 96374; 96375; 97110; 97116; 97163; 97166; 97530; 97535; 99285; G8978-GP; G8979-GP; G8987-GO; G8988-GO; J0696; J1650; J1940; J2060; J2405; J2550; J2920; J2930; J3475